=== PATIENT | female | born 1995 | race Caucasian/White ===

== ENCOUNTER 2018-03-11 09:05 | Day surgery (SDC) | payer OTHER ==
[2018-03-11] MEDS ORDERED: LIDOCAINE 2% 5 ML SDV ONE (10:05)
[2018-03-11] MEDS ORDERED: PROPOFOL/EMULSION 500 MG/50 ML BOTTLE IV ONE (10:05)
--- NOTE | 2018-03-11 10:13 | PDANEPAE ---
ANE History of Present Illness h/o anemia and difficulty swallowing here for EGD/colonoscopy ANE Past Medical History - Cardiovascular History Hx Hypertension: No Hx Arrhythmias: No Hx Chest Pain: No Hx Coronary Artery / Peripheral Vascular Disease: No Hx CHF / Valvular Disease: No Hx Palpitations: No - Pulmonary History Hx COPD: No Hx Asthma/Reactive Airway Disease: No Hx Recent Upper Respiratory Infection: No Hx Oxygen in Use at Home: No Hx Sleep Apnea: No Sleep Apnea Screening Result - Last Documented: Negative Pulmonary History Comment: EXERCISE INDUCED ASTHMA - Neurologic History Hx Cerebrovascular Accident: No Hx Seizures: No Hx Dementia: No Neurologic History Comment: MIGRAINES IN PAST - NOT CURRENTLY - Endocrine History Hx Diabetes: No Hypothyroid: No Hyperthyroid: No Obesity: no - Renal History Hx Renal Disorders: No Renal History Comment: HYDRONEPHROSIS IN INFANCY - Liver History Hx Hepatic Disorders: No - Neurological & Psychiatric Hx Hx Neurological and Psychiatric Disorders: No - Cancer History Hx Cancer: No Cancer History Comment: GRANDMOTHER COLON CA. GRANDFATHER PANCREATIC CA - Congenital Disorder History Hx Congenital Disorders: No - GI History Hx Gastrointestinal Disorders: No Gastrointestinal History Comment: ESOPHAGEAL MUCUS - Other Health History Other Health History: ANEMIA - RECENT - BEING WORKED UP INCLUDING SCHEDULED PROCEDURES - Chronic Pain History Chronic Pain: No - Surgical History Prior Surgeries: ING HERNIA X2. UMB HERNIA. DEVIATED SEPTUM. WISDOM TEETH ANE Review of Systems Review of systems is: negative Review of Systems: - Exercise capacity METS (RN): 5 METS ANE Patient History - Allergies Allergies/Adverse Reactions: Penicillins Allergy (Verified 03/11/18 09:30) Rash - Home Medications Home medications: home medication list seen and reviewed Home Medications: Susana Allergy 02/25/18 [Last Taken 03/09/18] Mucinex 02/25/18 [Last Taken 03/09/18] Pantoprazole Sodium 02/25/18 [Last Taken 03/10/18] Ranitidine HCl 02/25/18 [Last Taken 03/10/18] Tri-Previfem Tablet 02/25/18 [Last Taken 03/11/18] - NPO status NPO Since - Liquids (Date): 03/11/18 NPO Since - Liquids (Time): 05:00 NPO Since - Solids (Date): 03/10/18 NPO Since - Solids (Time): 09:00 - Anes Hx Anes Hx: no prior problems - Smoking Hx Smoking Status: Never smoked - Family Anes Hx Family Hx Anesthesia Complications: NEG ANE Labs/Vital Signs - Vital Signs Blood Pressure: 110/87 Heart Rate: 85 Respiratory Rate: 16 O2 Sat (%): 97 Height: 172.72 cm Weight: 70.307 kg ANE Physical Exam - Airway Neck exam: FROM Mallampati Score: Class 1 Mouth exam: normal dental/mouth exam - Pulmonary Pulmonary: no respiratory distress - Cardiovascular Cardiovascular: regular rate and rhythym - ASA Status ASA Status: I ANE Anesthesia Plan Anesthesia Plan: GA with mask
--- NOTE | 2018-03-11 10:20 | PDGENHP ---
History & Physical Chief Complaint: globusm iron def anemia History of Present Illness: anemia noted on labs. hs reflux and globus Pertinent Past, Social, Family History: FHx - mom with polyps. SHx -rare alcohol, no tobacco. PMH - hernias repair Relevant Physical Exam: A+Ox3. CTA. S1S2, RRR. +BS, soft nt Cardiorespiratory Assessment: class 2
[2018-03-11] MEDS ORDERED: fentaNYL 100 MCG/2 ML INJ ONE (10:38)
[2018-03-11] MEDS ORDERED: PROPOFOL 200 MG/20 ML VIAL ONE (10:52)
[2018-03-11] MEDS ORDERED: PROMETHAZINE HCL 25 MG/ML INJ IVP PRN (11:03)
[2018-03-11] MEDS ORDERED: oxyCODONE IR 5 MG TAB PO PRN (11:03)
[2018-03-11] MEDS ORDERED: METOCLOPRAMIDE 10 MG/2 ML VIAL IVP PRN (11:03)
[2018-03-11] MEDS ORDERED: ALBUTEROL 3 ML DEYVIAL IH PRN (11:03)
[2018-03-11] MEDS ORDERED: ONDANSETRON 4 MG/2 ML VIAL IVP PRN (11:03)
[2018-03-11] MEDS ORDERED: HYDROCODONE/APAP 5/325 TAB PO PRN (11:03)
[2018-03-11] MEDS ORDERED: NALOXONE HCL 0.4 MG/ML INJ IVP PRN (11:03)
[2018-03-11] MEDS ORDERED: fentaNYL 100 MCG/2 ML INJ IVP PRN (11:03)
[2018-03-11] MEDS ORDERED: ACETAMINOPHEN 500 MG TAB PO PRN (11:03)
[2018-03-11] MEDS ORDERED: LR 500 ML IV PRN (11:03)
--- NOTE | 2018-03-11 11:25 | GIREPORT ---
[facility] Surgical Services - Endoscopy Department Patient Name: Courtney Shields Procedure Date: 03/11/2018 10:50 AM Patient Type: Outpatient Attending MD/ ER Physician: Jenn May Procedure: Colonoscopy Indications: Unexplained iron deficiency anemia, Family history of colonic polyps in a first-degree relative, Family history of pancreatic cancer in a distant relative Providers: Steve Hernández MD Referring MD: Keisha Fishman MD Medicines: Total IV Anesthesia (TIVA) = IV general w/o airway Complications: No immediate complications. Estimated blood loss: Minimal. Description of Procedure: After obtaining informed consent, the scope was passed under direct vis ion. Throughout the procedure, the patient's blood pressure, pulse, and oxyg en saturations were monitored continuously. The Colonoscope with irrigatio n channel was introduced through the anus and advanced to the terminal il eum, with identification of the appendiceal orifice and IC valve. The colono scopy was performed without difficulty. The patient tolerated the procedure w ell. The quality of the bowel preparation was excellent. Findings: The digital rectal exam was normal. A localized area of mucosa in the terminal ileum was mildly congested a nd thickened folds of the. Biopsies were taken with a cold forceps for histology. Estimated blood loss was minimal. A 16 mm polyp was found in the proximal ascending colon. The polyp was sessile. The polyp was removed with a cold snare. Resection and retriev al were complete. Estimated blood loss was minimal. A localized area of mucosa was found in the proximal ascending colon. Removed tissue surrounding polypectomy site with cold snare to make filomena e not a piecemeal resection. Area was tattooed with an injection of 3 mL of I ndia ink. The exam was otherwise without abnormality. Estimated Blood Loss: Estimated blood loss was minimal. Post Op Diagnosis: - Congested and thickened folds of the mucosa in the terminal ileum. Biopsied. - One 16 mm polyp in the proximal ascending colon, removed with a cold snare. Resected and retrieved. Tattooed. - Mucosa in the proximal ascending colon. This si the tissue surroundin g the polyp to make sure this was not a piecemeal resection. - The examination was otherwise normal. Recommendation: - Await pathology results. - My office will call with the pathology result with 5-7 days. If you h ave not heard from my office by 04-30, do not assume the pathology is daisy l, please call [phone] to get the pathology results. - Repeat colonoscopy date to be determined after pending pathology resu lts are reviewed for surveillance based on pathology results. It is possibl e that this tissue is not truly a polyp, although I suspect it is a sessi le serrated adenoma. - Avoid Aspirin and NSAID's for 7-10 days. - See EGD for other recommendations. If no celiac sprue noted on duoden al biopsy then recommend a capsule endoscopy of her small bowel. - Patient has a contact number available for emergencies. The signs and symptoms of potential delayed complications were discussed with the pat ient. Return to normal activities tomorrow. Written discharge instructions we re provided to the patient. - Continue present medications. - Discharge patient to home (ambulatory). - Return to primary care physician as previously scheduled. - Thank you for allowing me to help in your patient's care. Do not hesi mccoy to call with any questions. Attending Participation: I personally performed the entire procedure. Betty Zayas M.D Marquez Hernández MD 03/11/2018 11:25:21 AM This report has been signed electronicallyMathew MD Betty Number of Addenda: 0 Note Initiated On: 03/11/2018 10:50 AM Total Procedure Duration Time 0 hours 21 minutes 2 seconds [email or web address]
--- NOTE | 2018-03-11 11:30 | GIREPORT ---
[facility] Surgical Services - Endoscopy Department Patient Name: Courtney Shields Procedure Date: 03/11/2018 10:10 AM Patient Type: Outpatient Attending MD/ ER Physician: Jenn May Procedure: Upper GI endoscopy Indications: Unexplained iron deficiency anemia, Globus sensation Providers: Marquez Hernández MD Referring MD: Keisha Fishman Medicines: Total IV Anesthesia (TIVA) Complications: No immediate complications. Estimated blood loss: Minimal. Description of Procedure: After obtaining informed consent, the endoscope was passed under direct vision. Throughout the procedure, the patient's blood pressure, pulse, and oxygen saturations were monitored continuously. The Endoscope was intro duced through the mouth, and advanced to the third part of duodenum. The uppe r GI endoscopy was accomplished without difficulty. The patient tolerated th e procedure well. Findings: The upper third of the esophagus was normal. Biopsies were obtained fro m the proximal with cold forceps for histology of suspected eosinophilic esophagitis. Diffuse mild erythema was found in the lower third of the esophagus. Biopsies were taken with a cold forceps for histology. Estimated blood loss was minimal. Diffuse mildly erythematous mucosa without bleeding was found in the ga stric antrum. Biopsies were taken with a cold forceps for histology. Estimate d blood loss was minimal. The examined duodenum was normal. Biopsies for histology were taken wit h a cold forceps for evaluation of celiac disease. Estimated blood loss was minimal. The exam was otherwise without abnormality. Estimated Blood Loss: Estimated blood loss was minimal. Post Op Diagnosis: - Normal upper third of esophagus. Biopsied. - Erythema in the lower third of the esophagus. Biopsied. - Erythematous mucosa in the antrum. Biopsied. - Normal examined duodenum. Biopsied. - The examination was otherwise normal. Recommendation: - Await pathology results. - My office will call with the pathology result with 5-7 days. If you h ave not heard from my office by 12-14, do not assume the pathology is daisy l, please call [phone] to get the pathology results. - Perform a colonoscopy today. - If no evidence of celiac sprue pathology, then schedule a small bowel capsule endoscopy. - Follow an antireflux regimen. - Continue present medications. - Thank you for allowing me to help in your patient's care. Do not hesi mccoy to call with any questions. Attending Participation: I personally performed the entire procedure. Betty Zayas M.D Marquez Hernández MD 03/11/2018 11:30:09 AM This report has been signed electronicallyMathew MD Betty Number of Addenda: 0 Note Initiated On: 03/11/2018 10:10 AM Total Procedure Duration Time 0 hours 10 minutes 59 seconds [email or web address]
[2018-03-11 12:09] VITALS: BP 124/78
--- NOTE | 2018-03-11 13:31 | POSTANESTH ---
Post Anesthetic Evaluation Cardiovascular Status: Normal, Stable Respiratory Status: Normal, Stable Level of Consciousness/Mental Status: Can Participate in Eval, Alert and Oriented Pain Control: Adequate, Prn Tx Ordered Nausea/Vomiting Control: Adequate, Prn Tx Ordered Complications Possibly Related to Anesthesia: None Noted
== END 2018-03-11 12:26 | disposition home or self-care (01) ==
LOC: FSGY 09:05
PROVIDERS: ATTEND Internal Medicine Gastroenterology
DX: D50.9 Iron deficiency anemia, unspecified (principal); D12.2 Benign neoplasm of ascending colon; K21.9 Gastro-esophageal reflux disease without esophagitis; F45.8 Other somatoform disorders; Z83.71 Family history of colonic polyps; Z80.0 Family history of malignant neoplasm of digestive organs
CPT/HCPCS: J2704; J3010